=== PATIENT | male | born 1985 | race Caucasian/White ===

== ENCOUNTER 2018-05-27 15:47 | Emergency (ER) | payer OTHER ==
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
[2018-05-27] MEDS ORDERED: Sodium Chloride 0.9% 10 ML Syringe FLUSH PRN (16:01)
[2018-05-27] MEDS ORDERED: Sodium Chloride 0.9% 1,000 ML IV ONE (16:01)
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
[2018-05-27] MEDS: Take Home: Cyclobenzaprine 10 MG Tab, 4 Tab Pack PO ONE (18:04)
== END 2018-05-27 18:05 | disposition home or self-care (01) ==
LOC: VM.ED 15:47
DX: S01.01XA Laceration without foreign body of scalp, initial encounter (principal); V89.2XXA Person injured in unspecified motor-vehicle accident, traffic, initial encounter
CPT/HCPCS: 12004; 36415; 70450; 72125; 72128; 72131; 80047; 85025; 85610; 85730; 96360; 96361; 99285; A9270